=== PATIENT | female | born 1980 | race Caucasian/White ===

== ENCOUNTER → 2016-05-18 17:32 | Outpatient (CLI) | payer BC ==
[2014-09-27 19:31] VITALS: BMI 28.1
[~2016-05-18 17:32] MED LIST: IBUPROFEN600 MG PO; PERCOCET 5-3251 TAB PO
== END | disposition home or self-care (01) ==
LOC: D.MAMMO 15:00
DX: N63 Unspecified lump in breast (principal)

== ENCOUNTER 2016-09-23 08:16 | Day surgery (SDC) | payer BC ==
[~2016-09-23] VITALS: Ht 167.6 cm; Wt 62.1 kg
[~2016-09-23 08:16] MED LIST changes: +ORTHO TRI-7 DAYSX1 PO
[2016-09-23 08:52] LABS: BASOPHILS 0.2 % (0-2); EOSINOPHILS 3.8 % (0-7); HEMATOCRIT 39.4 % (36.0-48.0); HEMOGLOBIN 13.7 g/dL (12-16); IMMATURE GRANULOCYTES 0.3 % (0-5); LYMPHOCYTES 45.2 % (15-50); MCH 31.4 pg (26.0-34.0); MCHC 34.8 g/dL (31.0-37.0); MCV 90.2 fL (80.0-100.0); MEAN PLATELET VOLUME 11.7 fL (7.4-10.4); MONOCYTES 6.2 % (2-11); NEUTROPHILS 44.3 % (40-80); PLATELET COUNT 248 10x3/uL (130-400); RBC 4.37 10x6/uL (4.00-5.40); RDW 12.6 % (11.5-14.5); WBC 10.8 10x3/uL (4.8-10.8)
[2016-09-23] MEDS ORDERED: MEDROL DOSE PACK4 MG PO (08:52)
[2016-09-23] MEDS ORDERED: TYLENOL W/CODEI1 TAB PO (08:53)
[2016-09-23] MEDS ORDERED: BACTRIM DS TABL1 TAB PO (08:54)
[2016-09-23 09:03] LABS: APTT 26.2 SECONDS (22.8-39.4); INR 0.93 (0.85-1.17); PROTIME 12.3 SECONDS (11.6-15.0)
[2016-09-23 09:09] VITALS: BP 117/70; Ht 167.6 cm; Wt 62.1 kg
[2016-09-23 09:36] LABS: HCG URINE NEGATIVE (NEGATIVE)
[2016-09-23] MEDS ORDERED: ULTRAM50 MG PO (13:08)
== END 2016-09-23 15:20 | disposition home or self-care (01) ==
LOC: D.OPS 08:16 → D.PAN 11:00 → D.OPS 12:00
PROVIDERS: Anesthesiology; Surgery
DX: R59.0 Localized enlarged lymph nodes (principal); F17.200 Nicotine dependence, unspecified, uncomplicated; Z01.812 Encounter for preprocedural laboratory examination; R63.4 Abnormal weight loss

== ENCOUNTER → 2017-04-20 18:28 | Outpatient (CLI) | payer BC ==
[2016-09-23 09:09] VITALS: BMI 22.1
[~2017-04-20 18:28] MED LIST changes: +BACTRIM DS TABL1 TAB PO; +MEDROL DOSE PACK4 MG PO; +TYLENOL W/CODEI1 TAB PO; +ULTRAM50 MG PO
== END | disposition home or self-care (01) ==
LOC: D.MAMMO 14:00
DX: R92.8 Other abnormal and inconclusive findings on diagnostic imaging of breast (principal)

== ENCOUNTER 2020-08-09 05:36 | Day surgery (SDC) | payer BC ==
[2020-08-06 10:01] LABS: BASOPHILS 0.9 % (0-2); HEMATOCRIT 44.2 % (36.0-48.0); HEMOGLOBIN 15.1 g/dL (12-16); LYMPHOCYTES 21.7 % (15-50); MCH 30.2 pg (26.0-34.0); MCHC 34.1 g/dL (31.0-37.0); MCV 88.6 fL (80.0-100.0); NEUTROPHILS 67.4 % (40-80); PLATELET COUNT 281 10x3/uL (130-400); RBC 4.99 10x6/uL (4.00-5.40); RDW 13.3 % (11.5-14.5); WBC 12.7 10x3/uL (4.8-10.8)
[~2020-08-09] VITALS: Ht 167.6 cm; Wt 64.4 kg
[2020-08-09 06:19] VITALS: BP 100/46; BMI 22.9
[2020-08-09 06:30] LABS: HCG URINE NEGATIVE (NEGATIVE)
[2020-08-09 06:39] VITALS: Ht 167.6 cm; Wt 64.4 kg
--- NOTE | 2020-08-09 09:18 | NUR ---
IV D/C'D WITH CANNULA INTACT, PRESSURE HELD AND DRSG PLACED. DISCHARGE INSTRUCTIONS GIVEN AND PT VERBALIZED AN UNDERSTANDING. AMBULATES AND VOIDS WITHOUT DIFFICULTY
--- NOTE | 2020-08-20 06:04 | OP ---
PATIENT NAME: LEONIDAS ROWELL MEDICAL RECORD: [id number] LOCATION:[facility] ADMISSION DATE: SURGEON: LAUREN MCLEOD MD DATE OF OPERATION: 08/09/2020 PREOPERATIVE DIAGNOSIS: Vulvar condyloma. POSTOPERATIVE DIAGNOSIS: Vulvar condyloma. PROCEDURE PERFORMED: Laser ablation of vulvar condyloma. SPECIMENS: Include condyloma. FINDINGS: Three 1 to 3 cm vulvar condyloma noted on the right labia minora and labia majora. ESTIMATED BLOOD LOSS: Minimal. COMPLICATIONS: None apparent. DESCRIPTION OF PROCEDURE: The patient was taken to the operating room where general anesthesia was achieved without difficulty. The patient was then prepped and draped in normal sterile fashion in the dorsal lithotomy position in the [facility]. The bladder was drained of approximately 50 mL of straw colored urine. Wet blue towels were placed around the surgical site and all members of the OR staff had on laser glasses and masks for viral protection of HPV. At this point, the largest condyloma located on the right labia minora was ablated using the carbon dioxide laser without damage to the dermis. Following complete removal of the epidermal layer, good hemostasis was noted. Attention was then turned to a second right labia majora condyloma, which in a similar fashion. The carbon dioxide laser was then used to ablate the condyloma to the level of the dermis without damage to the dermal layer. A third smaller approximately 1-2 mm condyloma was then also ablated on the right vulvar area. Good hemostasis was noted from all vulvar sites. Antibiotic ointment was placed on the surgical sites. The patient tolerated the procedure well and was transferred to postanesthesia recovery stable without incident. TRANSINT:[id number] Voice Confirmation ID: [id number] DOCUMENT ID: [id number] LAUREN MCLEOD MD at [id number] CC: [id number] DICTATION DATE: 08/16/20 1447 CARE TEAM ASSISTANT: 08/16/20 1517 [facility] 08/09/20 [place] [address]
== END 2020-08-09 09:40 | disposition home or self-care (01) ==
LOC: D.OPS 05:36
PROVIDERS: ATTEND Obstetrics & Gynecology
DX: A63.0 Anogenital (venereal) warts (principal)